=== PATIENT | female | born 1970 | race Caucasian/White ===

== ENCOUNTER 2019-11-07 13:37 | Emergency (ER) | payer OTHER ==
[2019-11-07 13:51] VITALS: BP 138/97; PULSE 99; TEMP 98.2; BMI 28.8
[2019-11-07] MEDS ORDERED: MAG HYDROX/AL HYDROX/SIMETH -MYLANTA- ORAL SUSPENSION PO ONE (14:16)
--- NOTE | 2019-11-07 14:16 | PDOC ---
History of Present Illness - General Chief Complaint: Pain Stated Complaint: abd pain to back Time Seen by Provider: 11/07/19 13:53 - History of Present Illness Initial Comments: 11/07/19 16:07 Chief complaint: Epigastric pain HPI: Episodes of severe crampy epigastric and right upper quadrant pain with radiation to the back, left scapular area. The pain is accompanied by burning pain radiating up the sternum to the throat and a taste of acidity. It is worse in the morning and worse on an empty stomach. She has had endoscopy which showed only mild gastritis. The pain seems to be unresponsive to proton pump inhibitors, Pepcid, and other antacids. Review of systems: No nausea, vomiting, diarrhea, hematemesis, melena, bloody stool. No shortness of breath, cough, urinary tract symptoms, vaginal bleeding or discharge. 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 Cervical and T-spine disease. Clear coronary arteries on angiogram. Pulmonary embolus several years ago after a long plane ride to [place]. Social history: Teacher, admits moderate stress levels, no tobacco or nonprescription drugs, occasional social alcohol, none recently. Family history: Reviewed and noncontributory Physical exam: Alert and oriented well-developed well-nourished no acute distress at present. Symptoms have subsided Afebrile, vital signs normal HEENT normal Neck supple without bruit mass or nodes Chest clear, full breath sounds bilaterally, no pleuritic pain. No rib cage or chest wall deformity or tenderness CV regular without murmur rub or gallop pulses full and symmetric no JVD or edema no bruits Abdomen nondistended. Bowel sounds normal. Soft without mass tenderness organomegaly. No CVAT Thoracic spine without deformity or tenderness to palpation. Pain seems to be along the medial scapular border on the left. Neurologic intact EKG normal. Cardiac enzymes normal. Full blood work done yesterday as an outpatient showed no significant abnormalities Impression: Description of the pain seems to suggest gastritis/reflux esophagitis. However, there is no improvement with proton pump inhibitors or other antacids. Plan: Continue proton pump inhibitors daily, instead of as needed. Stress reduction techniques, deep breathing, meditation, yoga were all discussed. Encouraged to continue walking regimen for exercise. Follow-up senior specialist. Trial of Reglan. Return to ER if pain is worse or other symptoms develop. Fully ambulatory and in no pain and upon discharge with to follow-up as directed Past History - Past Medical History Allergies/Adverse Reactions: Allergies Allergy/AdvReac Type Severity Reaction Status Date / Time No Known Allergies Allergy Verified 11/07/19 13:38 Home Medications: Ambulatory Orders Esomeprazole Mag Trihydrate [Nexium] 40 mg PO DAILY #0 capsule 04/01/13 Metoclopramide HCl [Reglan -] 10 mg PO QID PRN #20 tablet 11/07/19 Cardiac Disorders: Yes (SVT, PE x 3, angina) COPD: No - Immunization History Td Vaccination: No - Psycho Social/Smoking Cessation Hx Smoking Status: Yes Smoking History: Never smoked Have you smoked in the past 12 months: No Number of Cigarettes Smoked Daily: 0 If you are a former smoker, when did you quit?: 4 months Information on smoking cessation initiated: No Hx Alcohol Use: No Drug/Substance Use Hx: No Substance Use Type: None Hx Substance Use Treatment: No *Physical Exam - Vital Signs Last Vital Signs Temp Pulse Resp BP Pulse Ox 98.2 F 99 H 20 138/97 100 11/07/19 13:37 11/07/19 13:37 11/07/19 13:37 11/07/19 13:37 11/07/19 13:37 ED Treatment Course - ADDITIONAL ORDERS Additional order review: Laboratory Results 11/07/19 11/07/19 14:46 14:46 Creatine Kinase 94 Troponin I < 0.03 - Medications Given in the ED: ED Medications Discontinued Medications Generic Name Dose Route Start Last Admin Trade Name Freq PRN Reason Stop Dose Admin Al Hydroxide/Mg Hydroxide 30 ml 11/07/19 14:16 11/07/19 14:23 Mylanta Suspension - PO 11/07/19 14:17 30 ml ONCE ONE Administration Metoclopramide HCl 10 mg 11/07/19 15:23 11/07/19 15:33 Reglan - PO 11/07/19 15:24 10 mg ONCE ONE Administration Discharge - Discharge Information Problems reviewed: Yes Clinical Impression/Diagnosis: Spasm of stomach Condition: Stable Disposition: HOME - Admission No - Additional Discharge Information Prescriptions: Metoclopramide HCl [Reglan -] 10 mg PO QID PRN #20 tablet PRN Reason: Stomach pain/spasm - Follow up/Referral - Patient Discharge Instructions Patient Printed Discharge Instructions: DI for Gastritis Additional Instructions: Trial of Reglan [place] with diet, eliminating 1 food at a time for a few days to see if that will have an effect. Consult with senior specialist. - Post Discharge Activity
[2019-11-07] MEDS ORDERED: MAG HYDROX/AL HYDROX/SIMETH 30 ML UNIT-DOSE CUP ONE (14:21)
[2019-11-07] MEDS ORDERED: METOCLOPRAMIDE HCL 10 MG TABLET (FP) PO ONE ×2 (15:23→15:32)
--- NOTE | 2019-11-08 11:03 | EKG ---
Test Reason : Blood Pressure : / mmHG Vent. Rate : 084 BPM Atrial Rate : 084 BPM P-R Int : 170 ms QRS Dur : 086 ms QT Int : 382 ms P-R-T Axes : 023 016 034 degrees QTc Int : 451 ms NORMAL SINUS RHYTHM NORMAL ECG WHEN COMPARED WITH ECG OF 06-OCT-2015 22:21, NO SIGNIFICANT CHANGE WAS FOUND Confirmed by BRONSON DOBSON MD ([id number]) on 11/08/2019 11:03:05 AM Referred By: CISCO PARR Confirmed By:BRONSON DOBSON MD
== END 2019-11-07 15:36 | disposition home or self-care (01) ==
LOC: FER 13:37
DX: K31.89 Other diseases of stomach and duodenum (principal); I47.1 Supraventricular tachycardia; Z86.711 Personal history of pulmonary embolism; Z87.891 Personal history of nicotine dependence; M34.9 Systemic sclerosis, unspecified
CPT/HCPCS: 36415; 82550; 84484; 93005; 99282-25

== ENCOUNTER 2023-01-29 20:39 | Observation (INO) | payer BC ==
[2023-01-29 21:16] LABS: EPITHELIAL CELLS FEW /hpf
[2023-01-29 21:19] LABS: ALBUMIN 3.8 g/dl (3.4-5.0); BILIRUBIN,TOTAL 0.5 mg/dl (0.2-1); CREATININE 0.6 mg/dl (0.55-1.3); TOT PROT 6.8 g/dl (6.4-8.2)
[2023-01-29] MEDS ORDERED: ACETAMINOPHEN 1000 MG/100 ML BAG IVPB ONE (21:33)
[2023-01-29] MEDS ORDERED: ACETAMINOPHEN INJECTION 100 ML IVPB ONE (21:37)
[2023-01-29] MEDS ORDERED: KETOROLAC TROMETHAMINE 30 MG/1 ML VIAL ONE (22:05)
[2023-01-29] MEDS ORDERED: KETOROLAC TROMETHAMINE 30 MG/1 ML VIAL IVPUSH ONE (22:07)
[2023-01-29 23:02] LABS: BASO % 0.6 % (0-2.0); EOS % 1.1 % (0-4.5); HEMATOCRIT 34.3 % (32.4-45.2); HEMOGLOBIN 11.6 GM/dL (10.7-15.3); LYMPH % 32.7 % (8-40); MCH 28.8 pg (25.7-33.7); MCHC 33.7 g/dl (32.0-36.0); MEAN CELL VOLUME 85.5 fl (80-96); MEAN PLT VOLUME 10.1 fl (7.5-11.1); MONO % 9.4 % (3.8-10.2); NEUT % 56.2 % (42.8-82.8); PLATELET COUNT 225 10^3/uL (134-434); RBC 4.01 M/mm3 (3.60-5.2); RDW 13.7 % (11.6-15.6); WHITE BLOOD COUNT 6.3 K/mm3 (4.0-10.0)
[2023-01-29] MEDS ORDERED: SODIUM CHLORIDE 1,000 ML IV STA (23:42)
[2023-01-29] MEDS ORDERED: TAMSULOSIN HCL 0.4 MG CAP PO ONE (23:45)
[2023-01-29] MEDS ORDERED: TAMSULOSIN HCL 0.4 MG CAP ONE (23:46)
[2023-01-30] MEDS ORDERED: TAMSULOSIN HCL 0.4 MG CAP PO ONE ×2 (00:37→08:21)
[2023-01-30] MEDS ORDERED: DOCUSATE SODIUM 100 MG CAPSULE (FP) PO PRN (00:38)
[2023-01-30] MEDS ORDERED: SODIUM CHLORIDE 1,000 ML IV SCH (00:45)
[2023-01-30] MEDS: KETOROLAC TROMETHAMINE 30 MG/1 ML VIAL IM SCH ×3 (02:00→18:01)
[2023-01-30 03:10] VITALS: BMI 27.5
[2023-01-30] MEDS: FUROSEMIDE 20 MG TABLET (FP) PO SCH ×2 (06:26→13:47)
[2023-01-30 08:03] LABS: ALBUMIN 3.1 g/dl (3.4-5.0); BILIRUBIN,TOTAL 0.7 mg/dl (0.2-1); CALCIUM 8.2 mg/dl (8.5-10); CREATININE 0.4 mg/dl (0.55-1.3); TOT PROT 5.6 g/dl (6.4-8.2)
[2023-01-30 08:46] VITALS: PULSE 94; RESP 18
[2023-01-30] MEDS ORDERED: D5-1/2NS+30 MEQ KCL - 30 MEQ/1,000 ML INFUS.BAG IV SCH (09:15)
[2023-01-30 09:16] LABS: BASO % 0.6 % (0-2.0); EOS % 1.7 % (0-4.5); HEMATOCRIT 31.5 % (32.4-45.2); HEMOGLOBIN 10.6 GM/dL (10.7-15.3); LYMPH % 33.8 % (8-40); MCH 28.7 pg (25.7-33.7); MCHC 33.8 g/dl (32.0-36.0); MEAN PLT VOLUME 9.7 fl (7.5-11.1); MONO % 9.4 % (3.8-10.2); NEUT % 54.5 % (42.8-82.8); PLATELET COUNT 188 10^3/uL (134-434); RBC 3.71 M/mm3 (3.60-5.2); RDW 13.7 % (11.6-15.6); WHITE BLOOD COUNT 4.1 K/mm3 (4.0-10.0)
[2023-01-30] MEDS ORDERED: POTASSIUM CHLORIDE 30 MEQ in DEXTROSE 5%-0.45% SALINE 1,000 ML IV SCH (09:30)
[2023-01-30] MEDS: KCL 10 MEQ IVPB 10 MEQ/100 ML INFUS.BAG IVPB SCH (09:55)
[2023-01-30] MEDS ORDERED: PANTOPRAZOLE 40 MG TABLET PO SCH (10:00)
[2023-01-30] MEDS ORDERED: PANTOPRAZOLE SOD 40 MG SUSPENSION PACKET PO SCH (10:00)
[2023-01-30] MEDS ORDERED: MAGNESIUM SULF 50% (8.12 MEQ/2 ML-1 GM VIAL) IVPB ONE (10:44)
[2023-01-30] MEDS ORDERED: MAGNESIUM SULFATE IN WATER 2 GM/50 ML IVPB IVPB ONE (10:45)
[2023-01-30] MEDS ORDERED: MAGNESIUM HYDROX 2400MG/30ML ORAL SUSPENSION 30 ML CUP PO PRN (11:46)
[2023-01-30 14:16] VITALS: BP 130/80; TEMP 98.8
[2023-01-30] MEDS ORDERED: POTASSIUM CHLORIDE TABS 20 MEQ TABLET.ER (FP) PO SCH (22:00)
[2023-01-30] MEDS ORDERED: BISACODYL 5 MG TABLET.DR (FP) PO SCH (22:00)
== END 2023-01-30 19:02 | disposition home or self-care (01) ==
LOC: FER 20:39 → INTOOBSV 01-30 00:35 → FM/S 01-30 00:35 → UNDOADMOB 01-30 00:35 → FM/S 01-30 11:03
PROVIDERS: ADMIT Family Medicine; ATTEND Family Medicine
PROC: 3E033NZ Introduction of Analgesics, Hypnotics, Sedatives into Peripheral Vein, Percutaneous Approach (ICD-10-PCS; principal; 2023-01-30)
PROC: 3E03329 Introduction of Other Anti-infective into Peripheral Vein, Percutaneous Approach (ICD-10-PCS; 2023-01-30)
PROC: 3E033GC Introduction of Other Therapeutic Substance into Peripheral Vein, Percutaneous Approach (ICD-10-PCS; 2023-01-30)
PROC: 3E0337Z Introduction of Electrolytic and Water Balance Substance into Peripheral Vein, Percutaneous Approach (ICD-10-PCS; 2023-01-30)
DX: N39.0 Urinary tract infection, site not specified (principal); N13.30 Unspecified hydronephrosis; N20.1 Calculus of ureter; E87.6 Hypokalemia; I25.10 Atherosclerotic heart disease of native coronary artery without angina pectoris; I47.1 Supraventricular tachycardia; M34.9 Systemic sclerosis, unspecified; Z86.711 Personal history of pulmonary embolism; K21.9 Gastro-esophageal reflux disease without esophagitis; Z87.891 Personal history of nicotine dependence
CPT/HCPCS: 0241U-QW; 36415; 74176-TC; 76775-TC; 76856-TC; 80053; 81003; 81015; 83735; 85025; 87086; 99285-25; G0378